=== PATIENT | female | born 1985 | race Two or more races ===

== ENCOUNTER 2018-09-21 09:59 | Inpatient (IN) | payer MEDICAID ==
[2018-09-21] MEDS ORDERED: CARBOPROST 250 MCG INJ IM ×2 (11:00→18:00)
[2018-09-21] MEDS ORDERED: METHYLERGONOVINE 0.2 MG INJ IM ×2 (11:00→18:00)
[2018-09-21] MEDS ORDERED: AZITHROMYCIN 500MG/NS (PMX) 250 ML IV (11:00)
[2018-09-21] MEDS ORDERED: MISOPROSTOL 200 MCG TAB PR ×2 (11:00→18:00)
[2018-09-21] MEDS ORDERED: CEFAZOLIN 2 GM/50 ML (PMX) 50 ML IVPB (11:00)
[2018-09-21 11:05] LABS: ADD MAN DIFF? NO
[2018-09-21 11:13] LABS: BASOPHILS % 0.1 % (0.0-2.0); EOSINOPHILS % 0.3 % (0.0-7.0); HEMATOCRIT 43.4 % (37.0-47.0); HEMOGLOBIN 14.3 g/dl (12.0-16.0); LYMPHOCYTES # 2.1 10^3/ul (0.8-2.9); LYMPHOCYTES % 26.8 % (15.0-51.0); MEAN CORPUSCULAR HEMOGLOBIN 29.9 pg (29.0-33.0); MEAN CORPUSCULAR HGB CONC 32.9 g/dl (32.0-37.0); MEAN CORPUSCULAR VOLUME 90.6 fl (82.0-101.0); MEAN PLATELET VOLUME 10.8 fl (7.4-10.4); MONOCYTE # 0.4 10^3/ul (0.3-0.9); MONOCYTES % 4.8 % (0.0-11.0); NEUTROPHIL # 5.3 10^3/ul (1.6-7.5); NEUTROPHILS % 67.6 % (39.0-77.0); PLATELET COUNT 190 10^3/UL (140-415); RED BLOOD COUNT 4.79 10^6/ul (4.20-5.40); RED CELL DISTRIBUTION WIDTH 14.5 % (11.5-14.5)
[2018-09-21 11:13] LABS: WHITE BLOOD COUNT 7.9 10^3/ul (4.8-10.8)
[2018-09-21 11:33] LABS: INR 0.93; PARTIAL THROMBOPLASTIN TIME 29.2 Sec (23.0-35.0); PROTIME 12.6 Sec (11.9-14.9)
[2018-09-21] MEDS: LACTATED RINGER'S 1,000 ML IV ×2 (12:16→12:17)
[2018-09-21] MEDS: CITRIC ACID/NA CITRATE 30 ML CUP PO (12:17)
[2018-09-21] MEDS: FAMOTIDINE 20 MG INJ IV (12:17)
[2018-09-21] MEDS: METOCLOPRAMIDE 10 MG INJ IV (12:18)
[2018-09-21 13:27] LABS: HEPATITIS B SURFACE ANTIGEN NEGATIVE (NEGATIVE)
[2018-09-21] MEDS ORDERED: morphine SULFATE/PF (10 MG/10 ML) INJ (13:29)
[2018-09-21] MEDS ORDERED: EPHEDrine 25 MG/5 ML SYG (13:30)
[2018-09-21] MEDS ORDERED: HYDROmorphONE 0.5 MG/0.5 ML SYG IV (14:00)
[2018-09-21] MEDS ORDERED: NALOXONE (0.4 MG/ML) INJ IV (14:00)
[2018-09-21] MEDS ORDERED: FENTAnyl 50 MCG/ML VIAL IV ×3 (14:00)
[2018-09-21] MEDS ORDERED: PROCHLORPERAZINE 10 MG INJ IV (14:00)
[2018-09-21] MEDS ORDERED: ZOLPIDEM 5 MG TAB PO (14:00)
[2018-09-21] MEDS ORDERED: DIPHENHYDRAMINE 50 MG INJ IV ×2 (14:00)
[2018-09-21] MEDS ORDERED: ONDANSETRON 4 MG INJ IV ×2 (14:00)
[2018-09-21] MEDS ORDERED: HYDROmorphONE 1 MG/5 ML IV SYRINGE IV ×3 (14:00)
[2018-09-21] MEDS ORDERED: KETOROLAC 30 MG INJ IV (14:00)
[2018-09-21] MEDS ORDERED: NALBUPHINE HCL (10 MG/1 ML) INJ IV (14:00)
[2018-09-21] MEDS ORDERED: EPHEDrine 25 MG/5 ML SYG IV (14:00)
[2018-09-21] MEDS ORDERED: MEPERIDINE 25 MG INJ IV (14:00)
[2018-09-21] MEDS ORDERED: ONDANSETRON 4 MG INJ (14:07)
[2018-09-21] MEDS ORDERED: OXYTOCIN 30 UNITS/LR 500 ML IV ×2 (14:36→18:00)
[2018-09-21] MEDS: OXYTOCIN 30 UNITS/LR 500 ML IV ×2 (16:23→19:05)
[2018-09-21] MEDS: KETOROLAC 30 MG INJ IV ×2 (16:24→23:14)
[2018-09-21 16:59] LABS: RAPID PLASMA REAGIN NONREACTIVE (NR)
[2018-09-21] MEDS: SENNA/DOCUSATE NA (8.6MG/50MG) TAB PO (21:00)
[2018-09-22] MEDS: LACTATED RINGER'S 1,000 ML IV (02:28)
[2018-09-22] MEDS: KETOROLAC 30 MG INJ IV ×2 (05:47→12:07)
[2018-09-22 07:15] LABS: ADD MAN DIFF? NO
[2018-09-22 07:21] LABS: WHITE BLOOD COUNT 8.8 10^3/ul (4.8-10.8)
[2018-09-22 07:21] LABS: BASOPHILS % 0.1 % (0.0-2.0); EOSINOPHILS % 0.1 % (0.0-7.0); HEMATOCRIT 33.5 % (37.0-47.0); LYMPHOCYTES # 1.9 10^3/ul (0.8-2.9); LYMPHOCYTES % 21.9 % (15.0-51.0); MEAN CORPUSCULAR HEMOGLOBIN 30.1 pg (29.0-33.0); MEAN CORPUSCULAR HGB CONC 32.8 g/dl (32.0-37.0); MEAN CORPUSCULAR VOLUME 91.5 fl (82.0-101.0); MONOCYTE # 0.6 10^3/ul (0.3-0.9); MONOCYTES % 6.4 % (0.0-11.0); NEUTROPHIL # 6.2 10^3/ul (1.6-7.5); NEUTROPHILS % 71.3 % (39.0-77.0); PLATELET COUNT 168 10^3/UL (140-415); RED BLOOD COUNT 3.66 10^6/ul (4.20-5.40); RED CELL DISTRIBUTION WIDTH 14.3 % (11.5-14.5)
[2018-09-22] MEDS: HYDROmorphONE 0.5 MG/0.5 ML SYG IV (09:58)
[2018-09-22] MEDS: SENNA/DOCUSATE NA (8.6MG/50MG) TAB PO ×2 (09:58→20:56)
[2018-09-22] MEDS: LANOLIN HPA 1 PKT TOP (09:58)
[2018-09-22] MEDS: IBUPROFEN 800 MG TAB PO ×2 (14:32→21:27)
[2018-09-23] MEDS: OXYCODONE/ACETAMINOPHEN (5/325) TAB PO ×4 (03:04→16:37)
[2018-09-23] MEDS: IBUPROFEN 800 MG TAB PO ×3 (05:53→21:18)
[2018-09-23] MEDS: SENNA/DOCUSATE NA (8.6MG/50MG) TAB PO ×2 (09:01→20:51)
[2018-09-24] MEDS: OXYCODONE/ACETAMINOPHEN (5/325) TAB PO ×2 (01:44→08:00)
[2018-09-24] MEDS: IBUPROFEN 800 MG TAB PO (05:31)
[2018-09-24] MEDS: DIPHTH/TET/ACEL PERTUSS (ADULT) 0.5 ML VIAL IM* (07:26)
[2018-09-24] MEDS: SENNA/DOCUSATE NA (8.6MG/50MG) TAB PO (10:03)
== END 2018-09-24 13:30 | disposition home or self-care (01) | DRG 788 ==
LOC: L-D 09:59 → PP1 17:53
PROVIDERS: Obstetrics & Gynecology
PROC: 10D00Z1 Extraction of Products of Conception, Low, Open Approach (ICD-10-PCS; principal; 2018-09-21 12:30)
DX: O65.5 Obstructed labor due to abnormality of maternal pelvic organs (principal); O34.211 Maternal care for low transverse scar from previous cesarean delivery; N73.6 Female pelvic peritoneal adhesions (postinfective); Z3A.39 39 weeks gestation of pregnancy; Z37.0 Single live birth
CPT/HCPCS: 85025; 85610; 85730; 86592; 86850; 86900; 86901; 87340; 99464

== ENCOUNTER 2018-10-07 15:20 | Emergency (ER) | payer MEDICAID ==
[2018-10-07] MEDS: ACETAMINOPHEN 500 MG TAB PO (16:02)
[2018-10-07 16:15] LABS: ADD UMIC YES; UR ASCORBIC ACID 40 mg/dL (NEGATIVE); UR BILIRUBIN (Dip) NEGATIVE (NEGATIVE); UR BLOOD (Dip) 2+ mg/dL (NEGATIVE); UR CLARITY CLEAR (CLEAR); UR COLOR YELLOW (YELLOW); UR GLUCOSE (Dip) NEGATIVE (NEGATIVE); UR KETONES (Dip) NEGATIVE (NEGATIVE); UR LEUKOCYTE ESTERASE (Dip) TRACE Leu/ul (NEGATIVE); UR MUCUS FEW /HPF (NONE SEEN); UR NITRITE (Dip) NEGATIVE (NEGATIVE); UR RBC 14 /HPF (0-5); UR SPECIFIC GRAVITY (Dip) 1.024 (1.003-1.030); UR TOTAL PROTEIN (Dip) NEGATIVE (NEGATIVE); UR UROBILINOGEN (Dip) NEGATIVE (NEGATIVE); UR WBC 4 /HPF (0-5)
== END 2018-10-07 16:51 | disposition home or self-care (01) ==
LOC: FTE 15:20
DX: S16.1XXA Strain of muscle, fascia and tendon at neck level, initial encounter (principal); N30.90 Cystitis, unspecified without hematuria; X50.1XXA Overexertion from prolonged static or awkward postures, initial encounter; Y92.9 Unspecified place or not applicable
CPT/HCPCS: 81001; 99282